=== PATIENT | male | born 1975 | race Caucasian/White ===

== ENCOUNTER 2022-02-04 15:35 | Emergency (ER) | payer OTHER ==
[~2022-02-04] VITALS: Ht 182.9 cm; Wt 55.3 kg
[~2022-02-04 15:35] MED LIST: ACET500C94 PO
[2022-02-04 15:40] VITALS: BP 122/77
[2022-02-04] MEDS ORDERED: ATA25 PO (16:15)
[2022-02-04] MEDS ORDERED: OMEP40EC24 PO (16:15)
[2022-02-04 16:25] VITALS: BP 122/77
== END 2022-02-04 16:25 | disposition home or self-care (01) ==
LOC: MED 15:35
DX: F41.9 Anxiety disorder, unspecified (principal); K21.9 Gastro-esophageal reflux disease without esophagitis; R10.13 Epigastric pain; Z79.899 Other long term (current) drug therapy
CPT/HCPCS: 99283

== ENCOUNTER 2023-12-02 13:04 | Emergency (ER) | payer OTHER ==
[~2023-12-02] VITALS: Ht 182.9 cm; Wt 113.4 kg
[~2023-12-02 13:04] MED LIST changes: +ATA25 PO; +OMEP40EC24 PO
[2023-12-02 13:06] VITALS: BP 129/86; PULSE 89; RESP 18; TEMP 98.1; O2SAT 96
== END 2023-12-02 15:19 | disposition home or self-care (01) ==
LOC: MERGE 13:04 → MED 13:04
DX: R25.3 Fasciculation (principal); R42 Dizziness and giddiness; F41.9 Anxiety disorder, unspecified; Z79.1 Long term (current) use of non-steroidal anti-inflammatories (NSAID); Z79.899 Other long term (current) drug therapy
CPT/HCPCS: 70450; 99284